=== PATIENT | male | born 1950 | race Caucasian/White ===

== ENCOUNTER 2017-04-20 11:26 | Day surgery (SDC) | payer OTHER ==
[~2017-04-20] VITALS: Ht 188 cm; Wt 99.0 kg
[~2017-04-20 11:26] MED LIST: ACIPHEX20 MG PO; ASPIRIN325 MG PO; COUMADIN,JANTOVE1 MG PO; DILAUDID2 MG PO; DIOVAN160 MG PO; JARDIANCE25 MG PO; LEVOTHYROXINE100 MCG PO; Levothroid,Synthroid PO; METOPROLOL SUCC25 MG PO; OMEPRAZOLE40 M1 PO; OxyCONTIN PO; ROSUVASTATIN CA10 MG PO; SENOKOT S,PE1 TABLET PO; Tylenol Regular Stre PO; VALSARTAN-HCTZ1 EAC1 PO; WELCHOL625 MG PO; ZETIA10 MG PO
[2017-04-20 12:11] LABS: POINT-OF-CARE METER ID UU13113696
== END 2017-04-20 18:40 | disposition home or self-care (01) ==
LOC: CATH 11:26
PROVIDERS: Internal Medicine Cardiovascular Disease
DX: I25.10 Atherosclerotic heart disease of native coronary artery without angina pectoris (principal); I49.3 Ventricular premature depolarization; I10 Essential (primary) hypertension; K76.0 Fatty (change of) liver, not elsewhere classified; E88.81 Metabolic syndrome and other insulin resistance; E11.9 Type 2 diabetes mellitus without complications; E78.5 Hyperlipidemia, unspecified; Z79.82 Long term (current) use of aspirin; F17.220 Nicotine dependence, chewing tobacco, uncomplicated
CPT/HCPCS: 82948; C1750; C1769; C1887; J1200; J1644; J2250; J3010